=== PATIENT | male | born 1980 | race Caucasian/White ===

== ENCOUNTER 2017-08-03 15:59 | Inpatient (IN) | payer MEDICAID ==
[~2017-08-03] VITALS: Ht 175.3 cm; Wt 68.0 kg
--- NOTE | ~2017-08-03 | HP ---
Unit #: [id number] #: [id number] Patient: MAGGY CHRISTOPHER [id number] [place] [address] [id number] MR#: [id number] NAME: MAGGY CHRISTOPHER. ROOM: P178 Age: 37 Sex: M Admission Date: 08/03/2017 : 1980 Attending Physician: German Galicia M.D. Admitting Physician: German Galicia M.D. Primary Care Physician: Primary Care Physician No HISTORY AND PHYSICAL NOTE Maggy is a 37 year old who was admitted and discharged within the first 24 hours. He was not seen for an H & P. Dictated by... Lexy Hudson P.A.-C. for Emilie Pereyra/lorena TD: 08/04/2017 22:01 JOB #: [id number] HISTORY AND PHYSICAL Page 1 of 1 X Lexy Hudson X HISTORY AND PHYSICAL
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
--- NOTE | ~2017-08-03 | DS ---
Unit #: [id number] #: [id number] Patient: MAGGY CHRISTOPHER [id number] [facility] [address] [place] [address] [id number] I MR#: [id number] NAME: MAGGY CHRISTOPHER. ROOM: P178 Age: 37 Sex: M Admission Date: 08/03/2017 : 1980 Discharge Date: 08/04/2017 Attending Physician: German Galicia M.D. Primary Care Physician: Primary Care Physician No DISCHARGE SUMMARY REASON FOR ADMISSION Maggy is a 37-year-old man with prior psychiatric history significant for opioid dependence. He came in after multiple arguments with his spouse following their recent separation and loss of custody of their children. He initially stated that he had been having suicidal thoughts, but denied intent or plan. [facility]. DIAGNOSTIC STUDIES LABORATORY RESULTS: Please see hospital chart. HOSPITAL COURSE The patient was admitted and placed on suicide precautions overnight. During my initial psychiatric interview, the patient adamantly denied that he was planning to kill himself or had thoughts of suicide at this time. He stated that he wanted to get outpatient care and was "talked into" coming into the hospital, although he reports he had never "really" had suicidal ideation. The patient's contacted us, stating that she was fearful for his return home due to recent aggression between them, but I am unable to hold the patient against his will under these circumstances. He did agree to start citalopram 20 mg daily as an outpatient and to follow up with outpatient providers. At that point, the patient was released at his request. DISCHARGE DIAGNOSES AXIS I: Major depression, moderate, F33.1 and opioid dependence, on Suboxone therapy. AXIS II: Antisocial personality traits, possibly disorder. AXIS III: History of Crohn disease. AXIS IV: AXIS V: DISCHARGE INSTRUCTIONS Follow up with [facility] and Dr. Red. DISCHARGE MEDICATIONS Celexa 20 mg daily for depression. CONDITION AT DISCHARGE Fair. PROGNOSIS Unit #: [id number] #: [id number] Patient: MAGGY CHRISTOPHER. DIET AND ACTIVITY Per primary care doctor. Dictated by... German Galicia M.D. [facility]/modl TD: 08/04/2017 12:43 JOB #: [id number] DISCHARGE SUMMARY Page 1 of 1 X German Galicia MD DISCHARGE SUMMARY
[~2017-08-03 15:59] MED LIST: FLEXERIL10 MG PO; VICODIN 5/1 TAB 5/50 PO
[2017-08-04 09:56] LABS: ALBUMIN SERUM 3.2 g/dL (3.5-5.0); BILIRUBIN,TOTAL 0.1 mg/dL (0.2-2.0); BUN/CREATININE RATIO 6.25; CALCIUM SERUM 8.7 mg/dL (8.4-10.2); CREATININE SERUM 0.8 mg/dL (0.6-1.4); POTASSIUM 4.6 mmol/L (3.5-5.1); PROTEIN TOTAL SERUM 5.3 g/dL (6.0-8.3)
[2017-08-04 09:58] LABS: BASOPHIL% 0.6 % (0-2.5); EOSINOPHIL# 0.3 X10e3 (0-0.7); EOSINOPHIL% 4.4 % (0.0-7.0); HEMATOCRIT 41.7 % (38.0-50.0); HEMOGLOBIN 14.1 gm/dL (13.0-16.0); LYMPHOCYTE# 3.7 X10e3 (1.0-3.5); LYMPHOCYTE% 54.9 % (17.0-45.0); MEAN CELL VOLUME 95.5 FL (83-96); MEAN CORPUSCULAR HEMOGLOBIN 32.3 PG (28-34); MEAN CORPUSCULAR HGB CONC 33.8 g/dL (30-36); MEAN PLATELET VOLUME 9.1 FL (6.5-11.5); MONOCYTE# 0.6 X10e3 (0-1.0); MONOCYTE% 9.1 % (3.0-12.0); NEUTROPHIL# 2.1 X10e3 (1.5-7.1); PLATELET COUNT 242 X10e3 (140-420); RED BLOOD COUNT 4.36 X10e (3.90-5.60); RED CELL DISTRIBUTION WIDTH 13.9 % (11.0-15.5); WHITE BLOOD COUNT 6.7 X10e3 (4.0-10.5)
[2017-08-04 10:04] LABS: DIFF IND YES
[2017-08-04 10:40] LABS: PLATELET ESTIMATE NORMAL (NORMAL)
== END 2017-08-04 12:49 | DRG 885 ==
LOC: P1E 19:22
PROVIDERS: Psychiatry & Neurology Psychiatry
DX: F33.1 Major depressive disorder, recurrent, moderate (principal); F11.20 Opioid dependence, uncomplicated; R45.851 Suicidal ideations; F60.2 Antisocial personality disorder
CPT/HCPCS: 80053; 85025